=== PATIENT | male | born 1995 | race Caucasian/White ===

== ENCOUNTER 2020-11-25 18:38 | Emergency (ER) | payer BC ==
[2020-11-25] MEDS ORDERED: EPINEPHrine 1 MG/10 ML SYR IV ONE (18:39)
[2020-11-25] MEDS ORDERED: ETOMIDATE 20 MG/10 ML VIAL IV ONE (18:39)
[2020-11-25] MEDS ORDERED: SODIUM CHL 0.9% 1000 ML BAG IV ONE (18:39)
[2020-11-25] MEDS ORDERED: SUCCINYLCHOLINE 20 MG/ML (10 ML) IV ONE (18:39)
[2020-11-25] MEDS ORDERED: RSI MEDICATION KIT IV ONE (19:18)
--- NOTE | 2020-11-25 19:27 | EDPHYS ---
Physician Documentation [facility] Name: Ron Herrera Age: 24 yrs Sex: Male : 1995 Arrival Date: 11/25/2020 Time: 18:39 Bed 3 Private MD: ED Physician Bandar Mccollum HPI: 11/25 19:15 This 24 yrs old Male presents to ER via Unassigned with complaints of horacio Possible Overdose. 19:15 The patient presents to the emergency department after a known overdose, that was horacio intentional, a result of recreational substance abuse. Context: Method: the patient has a confirmed or suspected ingestion, percocet. Associated signs and symptoms: Pertinent positives: apnea. Severity of symptoms: At their worst the symptoms were incapacitating in the emergency department the symptoms. It is unknown whether or not the patient has had similar symptoms in the past. Historical: - Allergies: 18:39 No Known Allergies; aa5 - Home Meds: 19:58 Keppra Oral [Active]; phentermine oral oral [Active]; Xanax Oral [Active]; montelukast iw 10 mg oral tab 1 tab once daily [Active]; - PMHx: 19:58 Seizures; iw - Immunization history:: Adult Immunizations unknown. - Social history:: Smoking status: unknown. - Family history:: not pertinent. ROS: 19:15 Constitutional: Negative for fever, chills, and weight loss, Eyes: Negative for injury, horacio pain, redness, and discharge, ENT: Negative for injury, pain, and discharge, Neck: Negative for injury, pain, and swelling, Cardiovascular: Negative for chest pain, palpitations, and edema, Abdomen/GI: Negative for abdominal pain, nausea, vomiting, diarrhea, and constipation, Back: Negative for injury and pain, : Negative for injury, bleeding, discharge, and swelling, MS/Extremity: Negative for injury and deformity, Skin: Negative for injury, rash, and discoloration, Psych: Negative for depression, anxiety, suicide ideation, homicidal ideation, and hallucinations, Allergy/Immunology: Negative for hives, rash, and allergies, Endocrine: Negative for neck swelling, polydipsia, polyuria, polyphagia, and marked weight changes, Hematologic/Lymphatic: Negative for swollen nodes, abnormal bleeding, and unusual bruising. 19:15 Respiratory: Positive for intubated, gurdeep tube. Exam: 19:15 Head/Face: Normocephalic, atraumatic. Eyes: Pupils equal round and reactive to light, horacio extra-ocular motions intact. Lids and lashes normal. Conjunctiva and sclera are non-icteric and not injected. Cornea within normal limits. Periorbital areas with no swelling, redness, or edema. ENT: Nares patent. No nasal discharge, no septal abnormalities noted. Tympanic membranes are normal and external auditory canals are clear. Oropharynx with no redness, swelling, or masses, exudates, or evidence of obstruction, uvula midline. Mucous membranes moist. Neck: Trachea midline, no thyromegaly or masses palpated, and no cervical lymphadenopathy. Supple, full range of motion without nuchal rigidity, or vertebral point tenderness. No Meningismus. Chest/axilla: Normal chest wall appearance and motion. Nontender with no deformity. No lesions are appreciated. Back: No spinal tenderness. No costovertebral tenderness. Full range of motion. Male : Normal genitalia with no discharge or lesions. Skin: Warm, dry with normal turgor. Normal color with no rashes, no lesions, and no evidence of cellulitis. MS/ Extremity: Pulses equal, no cyanosis. Neurovascular intact. Full, normal range of motion. 19:15 Cardiovascular: Rate: tachycardic, actual rate is 135 bpm, Rhythm: regular, Pulses: Pulses are 4+ in bilateral radial, brachial, femoral, popliteal, posterior tibial and and dorsalis pedis arteries.. Heart sounds: normal, normal S1and S2, no S3 or S4, no murmur, no rub, no gallop, Edema: is not appreciated, JVD: is not appreciated. 19:15 ECG was reviewed by the Attending Physician. Vital Signs: 18:39 BP 149 / 106; Pulse 136; Resp 18; Pulse Ox 98% ; aa5 18:45 BP 144 / 128; Pulse 137; Resp 20 A; Pulse Ox 99% ; aa5 19:00 BP 167 / 112; Pulse 143; Resp 18 A; Pulse Ox 100% ; aa5 19:15 BP 187 / 160; Pulse 141; Resp 18 A; Temp 96.2(C); Pulse Ox 99% on ETT ambu; aa5 20:05 Weight 142.88 kg; ea 20:06 BP 124 / 83; Pulse 93; Resp 18; Temp 96.6; ea 21:41 BP 117 / 88; Pulse 77; Resp 20; Temp 97.1; Pulse Ox 99% on ETT vent; ea 22:38 BP 120 / 80; Pulse 80; Resp 20; Temp 98.1; Pulse Ox 100% ; ea 23:16 BP 115 / 81; Pulse 77; Resp 20; Temp 98.6; Pulse Ox 100% ; ea 18:39 O2 via Ambu bag to Gurdeep tube aa5 18:45 O2 via Ambu bag to Gurdeep Tube aa5 19:00 O2 via Ambu bag to Gurdeep Tube aa5 Procedures: 19:20 Intubation: Ventilated with 100% NRB prior to procedure. O2 saturation prior to horacio procedure was 100 %. Intubated orally using glide scope with 7.5 mm ETT. was successful on first attempt. Ventilated with Ambu bag. Tube secured with ETT calvo measured 23 cm at lip. Patient tolerated well. Central Line: the site was prepped with Betadine, in sterile fashion, a triple lumen catheter was inserted, in the right in 2 attempts. placement was verified, by blood return, the site was dressed with using sterile technique, the patient tolerated the procedure, well. MDM: 19:10 Patient medically screened. [facility] 19:20 Differential diagnosis: Ingestion/exposure to percoet. Data reviewed: vital signs, [facility] nurses notes, EMS record, old medical records, lab test result(s), EKG, radiologic studies, CT scan, plain films. Data interpreted: electronic device monitor: rate is 145 beats/min, rhythm is regular, Pulse oximetry: on ventilator is 100 %. Test interpretation: by ED physician or midlevel provider: ECG, plain radiologic studies. Counseling: I had a detailed discussion with the patient and/or guardian regarding: the historical points, exam findings, and any diagnostic results supporting the discharge/admit diagnosis, the presence of at least one elevated blood pressure reading (>120/80) during this emergency department visit, lab results, radiology results, the need for further work-up and treatment in the hospital. 11/25 18:56 Order name: Glucose, Ancillary Testing; Complete Time: 19:47 EDMS 11/25 18:56 Order name: Acetaminophen aa5 11/25 18:56 Order name: Basic Metabolic Panel [facility] 11/25 18:56 Order name: CBC with Diff [facility] 11/25 18:56 Order name: ETOH Level [facility] 11/25 18:56 Order name: Hepatic Function [facility] 11/25 18:56 Order name: PT-INR [facility] 11/25 18:56 Order name: Ptt, Activated [facility] 11/25 18:56 Order name: Salicylate [facility] 11/25 18:56 Order name: Urine Drug Screen [facility] 11/25 18:57 Order name: Amylase, Serum [facility] 11/25 18:57 Order name: Blood Culture Adult (2) [facility] 11/25 18:57 Order name: Ckmb [facility] 11/25 18:57 Order name: CPK [facility] 11/25 18:57 Order name: Lactate [facility] 11/25 18:57 Order name: Lipase [facility] 11/25 18:57 Order name: Procalcitonin [facility] 11/25 18:57 Order name: Troponin (emerg Dept Use Only) [facility] 11/25 18:57 Order name: Urine Microscopic Only [facility] 11/25 19:13 Order name: Magnesium [facility] 11/25 19:13 Order name: NT PRO-BNP [facility] 11/25 19:13 Order name: ABG [facility] 11/25 19:13 Order name: COVID-19 : Document "Date of Symptom Onset" if Symptomatic. [facility] 11/25 19:25 Order name: Urine Dipstick--Ancillary (enter results) [facility] 11/25 19:33 Order name: Salicylates Level; Complete Time: 19:47 EDMS 11/25 19:33 Order name: Alcohol Serum/Plasma; Complete Time: 19:47 EDMS 11/25 19:33 Order name: Urine Dipstick-Ancillary; Complete Time: 19:47 EDMS 11/25 19:36 Order name: Urine Drug Screen; Complete Time: 19:47 EDMS 11/25 19:44 Order name: Basic Metabolic Panel; Complete Time: 20:11 EDMS 11/25 19:44 Order name: Liver (Hepatic) Function; Complete Time: 20:11 EDMS 11/25 18:57 Order name: Chest Single View XRAY aa 11/25 19:13 Order name: CT Head Brain wo Cont horacio 11/25 19:27 Order name: Chest Single View XRAY ca1 11/25 19:32 Order name: RAD; Complete Time: 19:47 EDMS 11/25 19:44 Order name: Creatine Phosphokinase; Complete Time: 20:11 EDMS 11/25 19:44 Order name: CKMB Creatine Kinase MB; Complete Time: 20:11 EDMS 11/25 19:44 Order name: Troponin (Emerg Dept Use Only); Complete Time: 20:11 EDMS 11/25 19:44 Order name: NT PRO-BNP; Complete Time: 20:11 EDMS 11/25 19:44 Order name: Amylase; Complete Time: 20:11 EDMS 11/25 19:44 Order name: Lipase; Complete Time: 20:11 EDMS 11/25 19:44 Order name: Lactate; Complete Time: 19:47 EDMS 11/25 19:49 Order name: CT; Complete Time: 19:49 EDMS 11/25 19:50 Order name: Magnesium; Complete Time: 20:11 EDMS 11/25 19:51 Order name: Dilantin horacio 11/25 19:51 Order name: Depakote [facility] 11/25 19:51 Order name: Carbamazepine (tegretol) [facility] 11/25 19:52 Order name: Protime (+INR); Complete Time: 20:11 EDMS 11/25 19:52 Order name: PTT, Activated Partial Thromb; Complete Time: 20:11 EDMS 11/25 19:52 Order name: Acetaminophen Level; Complete Time: 20:11 EDMS 11/25 20:09 Order name: Procalcitonin; Complete Time: 20:11 EDMS 11/25 20:16 Order name: RAD; Complete Time: 21:10 EDMS 11/25 20:38 Order name: CBC with Automated Diff; Complete Time: 21:54 EDMS 11/25 20:58 Order name: Carbamazepine (Tegretol) Level; Complete Time: 21:10 EDMS 11/25 20:58 Order name: Phenytoin (Dilantin) Level; Complete Time: 21:10 EDMS 11/25 20:58 Order name: Valproic Acid (Depakene) Level; Complete Time: 21:10 EDMS 11/25 21:18 Order name: CORONAVIRUS EDMS 11/25 21:24 Order name: CBC Smear Scan; Complete Time: 21:54 EDMS 11/25 21:29 Order name: ABG Arterial Blood Gas; Complete Time: 21:54 EDMS 11/25 22:08 Order name: SARS-COV-2 RT PCR EDNV 11/25 18:56 Order name: EKG; Complete Time: 18:57 [facility] 11/25 18:56 Order name: EKG - Nurse/Tech; Complete Time: 19:35 aa5 11/25 18:56 Order name: Labs collected and sent; Complete Time: 19:35 aa5 11/25 18:56 Order name: Urine Dipstick-Ancillary (obtain specimen); Complete Time: 19:35 aa 11/25 18:57 Order name: Accucheck; Complete Time: 19:35 aa5 11/25 18:57 Order name: Cardiac monitoring; Complete Time: 19:35 aa5 11/25 18:57 Order name: IV Saline Lock - Large Bore; Complete Time: 19:35 aa 11/25 18:57 Order name: O2 Per Protocol; Complete Time: 19:35 [facility] 11/25 18:57 Order name: O2 Sat Monitoring; Complete Time: 19:35 aa 11/25 19:13 Order name: Central Line Kit; Complete Time: 19:34 horacio 11/25 19:13 Order name: Lindquist; Complete Time: 19:34 horacio 11/25 19:34 Order name: Labs - recollect needed: CBC em 11/25 19:46 Order name: Restrain Patient: VO received at 1915; Complete Time: 19:46 aa EC:15 Rate is 142 beats/min. Rhythm is regular. QRS Tyner is Normal. WV interval is normal. horacio QRS interval is normal. QT interval is normal. No Q waves. T waves are Normal. No ST changes noted. Clinical impression: Sinus tachycardia. Interpreted by me. Reviewed by me. Administered Medications: 19:00 Drug: NS 0.9% 1000 ml Route: IV; Rate: 1 bolus; Site: left forearm; aa5 21:57 Follow up: Response: No adverse reaction; IV Status: Completed infusion; IV Intake: ea 1000ml 19:15 Drug: Versed 3 mg Route: IVP; Site: right femoral; aa5 21:58 Follow up: Response: No adverse reaction ea 19:15 Drug: Versed 3 mg Route: IVP; Site: right femoral; aa5 21:58 Follow up: Response: No adverse reaction ea 19:20 Drug: Propofol 5 mcg/kg/min Route: IV; Rate: calculated rate; Site: right femoral; ea 21:57 Follow up: IV Status: Infusion continued upon transfer ea 20:30 Drug: Zosyn 3.375 grams Route: IVPB; Infused Over: 60 mins; Site: right femoral; ea 21:57 Follow up: Response: No adverse reaction; IV Status: Completed infusion ea 20:30 Drug: ProTONIX 40 mg Route: IVP; Site: right femoral; ea 21:58 Follow up: Response: No adverse reaction ea 21:59 Not Given (Physician Discretion): Rocephin 1 grams IV at calculated rate once; Given pm1 slow IV push per pharmacy instructions 21:59 Not Given (Physician Discretion): Clindamycin 900 mg IVPB once over 30 mins; (mix in 50 pm1 mL) 22:50 Drug: Cefepime 2 grams Route: IVPB; Rate: 200 ml/hr; Infused Over: 30 mins; Site: right ea femoral; 23:13 Follow up: IV Status: Completed infusion ea 23:11 Drug: vancoMYCIN 1 grams Route: IVPB; Infused Over: 2 hrs; Site: right femoral; ea 23:13 Follow up: Response: No adverse reaction; IV Status: Infusion continued upon transfer ea Disposition: 11/25/20 19:50 Transfer ordered to [facility]. Diagnosis are Respiratory failure, unspecified, Obesity, unspecified, Poisoning by unspecified drugs, medicaments and biological substances, intentional self-harm, Pneumonia, unspecified organism - ASPIRATION. - Reason for transfer: Higher level of care. - Accepting physician is DR MCGILL. - Condition is Fair. - Problem is new. - Symptoms have improved. Signatures: Dispatcher [employer] EDNV Bandar Mccollum MD MD cha Munoz, Edgar, RN Sheila Majano RN RN iw Calderon, Audri, RN RN aa5 Tad Crespo, HALL MONITOR-C HALL MONITOR-Cla1 Bobby Whitlock, BRAKE MECHANIC BRAKE MECHANIC pm1 Magalie Mcguire RN RN ea Corrections: (The following items were deleted from the chart) 19:31 19:27 Hospitalization Ordered by Carmelo Galvin DO for Inpatient Admission. Preliminary horacio diagnosis is Respiratory arrest - ROSC/RETURN OF SPONTANEOUS CIRCULATION. Bed requested for Intensive Care Unit. Status is Inpatient Admission. Condition is Fair. Problem is new. Symptoms have improved. horacio 19:35 18:56 IV Saline Lock ordered. aa5 aa5 19:46 19:31 11/25/2020 19:27 Hospitalization Ordered by Carmelo Galvin DO for Inpatient [facility] Admission. Preliminary diagnosis is Respiratory arrest - ROSC/RETURN OF SPONTANEOUS CIRCULATION; Poisoning by unspecified drugs, medicaments and biological substances, intentional self-harm; Obesity, unspecified; Pneumonia, unspecified organism - ASPIRATION. Bed requested for Intensive Care Unit. Status is Inpatient Admission. Condition is Fair. Problem is new. Symptoms have improved. [facility] 19:58 18:39 PMHx: None; aa5 iw 23:17 19:50 11/25/2020 19:50 Transfer ordered to [facility]. Diagnosis is Respiratory ea failure, unspecified; Obesity, unspecified; Poisoning by unspecified drugs, medicaments and biological substances, intentional self-harm; Pneumonia, unspecified organism - ASPIRATION. Reason for transfer: Higher level of care. Accepting physician is DR MCGILL. Condition is Fair. Problem is new. Symptoms have improved. horacio
--- NOTE | 2020-11-25 19:31 | RAD REPORT ---
EXAM DESCRIPTION: RAD - Chest Single View - 11/25/2020 7:19 pm CLINICAL HISTORY: md charlton Chest pain. FINDINGS: Portable technique limits examination quality. Tip of the endotracheal tube is above the deidre at the level of the clavicular heads. Mild atelectas is is present both lung bases. Heart size is upper limit normal.
[2020-11-25] MEDS ORDERED: propofoL 1,000 MG/100 ML VIAL IV ONE ×2 (19:32→20:58)
[2020-11-25] MEDS ORDERED: MIDAZOLAM HCL 2 MG/2 ML INJ ONE (19:32)
[2020-11-25 19:33] LABS: Urine Blood TRACE (NEG); Urine Glucose NEGATIVE (NEG); Urine Protein 3+ (NEG); Urine Specific Gravity >1.030 (1.005-1.030)
[2020-11-25 19:35] LABS: Barbiturates NEGATIVE (NEGATIVE); Benzodiazepines POSITIVE (NEGATIVE); Cocaine POSITIVE (NEGATIVE); METHAMPHETAM NEGATIVE (NEGATIVE); Methadone NEGATIVE (NEGATIVE); Opiates POSITIVE (NEGATIVE); Phencyclidine NEGATIVE (NEGATIVE); THC Cannibis POSITIVE (NEGATIVE)
[2020-11-25 19:43] LABS: ALT/SGPT 193 U/L (12-78); Alkaline Phosphatase 73 U/L (45-117); BUN Blood Urea Nitrogen 18 mg/dL (7-18); Bicarbonate 28 mmol/L (21-32); Bilirubin Direct < 0.1 mg/dL (0-0.2); Bilirubin Total 0.3 mg/dL (0.2-1.0); Glucose Level 243 mg/dL (74-106); Protein, Total 7.4 g/dL (6.4-8.2); Sodium Level 139 mmol/L (136-145)
[2020-11-25 19:44] LABS: Albumin 3.8 g/dL (3.4-5.0); Amylase 64 U/L (25-115); CKMB Creatine Kinase MB 1.3 ng/mL (0.3-3.6); Creatine Phosphokinase 169 U/L (39-308); Lipase 161 U/L (73-393); NT PRO-BNP 6 pg/mL (<125); Troponin (Emerg Dept Use Only) 0.02 ng/mL (0.0-0.045)
--- NOTE | 2020-11-25 19:48 | RAD REPORT ---
EXAM DESCRIPTION: CT - Head Brain Wo Cont - 11/25/2020 7:40 pm CLINICAL HISTORY: MENTAL STATUS CHANGE Headache, drowsiness COMPARISON: Head Brain Wo Cont dated 01/23/2016; HEAD BRAIN W O CONTRAST dated 12/21/2014 TECHNIQUE: All CT scans are performed using dose optimization technique as appropriate and may inclu de automated exposure control or mA/KV adjustment according to patient size. FINDINGS: No intracranial hemorrhage, hydrocephalus or extra-axial fluid collection.No areas of brai n edema or evidence of midline shift. The paranasal sinuses and mastoids are clear. The calvarium is intact. Endotracheal tube and nasogast wu tube noted. IMPRESSION: No acute intracranial abnormality.
[2020-11-25 19:50] LABS: Magnesium 1.9 mg/dL (1.8-2.4); Potassium 4.3 mmol/L (3.5-5.1); Protime INR 0.97
--- NOTE | 2020-11-25 19:50 | ER ---
Nurse's Notes [facility] Name: Ron Herrera Age: 24 yrs Sex: Male : 1995 Arrival Date: 11/25/2020 Time: 18:39 Bed 3 Private MD: Diagnosis: Respiratory failure, unspecified;Obesity, unspecified;Poisoning by unspecified drugs, medicaments and biological substances, intentional self-harm;Pneumonia, unspecified organism-ASPIRATION Presentation: 11/25 18:39 Chief complaint: EMS states: Pt's mother called 911 for possible opioid overdose, PD aa5 was first to arrive to scene and witnessed cardiac arrest, CPR was initiated by PD, ROSC was obtained after 2 rounds of CPR. Pt was intubated using Gurdeep tube, given Narcan, Ketamine, Versed, and Rocuronium by EMS. IO to R leg by EMS. Coronavirus screen: At this time, unable to obtain information related to travel outside the [place] Ebola Screen: Unable to complete the Ebola screening because:. Initial Sepsis Screen: Does the patient meet any 2 criteria? Altered Mental Status. HR > 90 bpm. Does the patient have a suspected source of infection? No. Patient's initial sepsis screen is negative. Risk Assessment: Do you want to hurt yourself or someone else? Unable to obtain. Onset of symptoms was November 25, 2020. 18:39 Method Of Arrival: EMS: [facility] aa5 18:39 Acuity: MIGUEL ANGEL 1 aa5 Historical: - Allergies: 18:39 No Known Allergies; aa5 - Home Meds: 19:58 Keppra Oral [Active]; phentermine oral oral [Active]; Xanax Oral [Active]; montelukast iw 10 mg oral tab 1 tab once daily [Active]; - PMHx: 19:58 Seizures; iw - Immunization history:: Adult Immunizations unknown. - Social history:: Smoking status: unknown. - Family history:: not pertinent. Screenin:00 Abuse screen: unable to obtain. Nutritional screening: unable to complete. Tuberculosis aa5 screening: unable to complete. 22:38 Fall Risk None identified. ea Assessment: 18:39 General: Behavior is unresponsive. Pain: Unable to use pain scale. Patient is aa5 intubated. Neuro: Level of Consciousness is intubated and sedated with no gag reflex present . Cardiovascular: Heart tones S1 S2 present Pulses are 3+ in left radial artery and left brachial artery Rhythm is sinus tachycardia. Respiratory: Airway via oral intubation Respiratory effort is assisted using Ambu bag to Gurdeep tube Respiratory pattern is regular, symmetrical, Breath sounds are clear bilaterally. GI: Abdomen is round non-distended, Abd is soft X 4 quads. Derm: Skin is dry, Skin is normal, Skin temperature is cool. 19:14 Reassessment: Pt now opening his eyes and mildly bucking the vent, MD was notified. . aa5 19:15 Reassessment: Soft wrist restrains applied per VO. Capillary refill <5 seconds prior aa5 and after restraint placement. . 19:17 Reassessment: Report given to JEAN MARIE Mejias. aa5 20:00 Reassessment: Pt resting with eyes closed, ETT in place, respirations assisted, amauri ea lung sounds present. NG tube in place to low intermittent suction, Lindquist catheter in place to BSD. IV sites intact, patent with fluids infusing, no erythema or edema noted. Awaiting on covid results. General:. 22:46 Reassessment: Report called to Brenda AJ at [facility] ICU. ea 23:14 Reassessment: [facility] at facility for transport. Report given to EMS. Pt ea resting with eyes closed, ETT in place, respirations assisted, amauri lung sounds present. NG tube in place to low intermittent suction. Lindquist catheter in place to BSD. IV sites intact, patent with fluids infusing. No erythema or edema noted. Pt left ED via stretcher per EMS. Vital Signs: 18:39 BP 149 / 106; Pulse 136; Resp 18; Pulse Ox 98% ; aa5 18:45 BP 144 / 128; Pulse 137; Resp 20 A; Pulse Ox 99% ; aa5 19:00 BP 167 / 112; Pulse 143; Resp 18 A; Pulse Ox 100% ; aa5 19:15 BP 187 / 160; Pulse 141; Resp 18 A; Temp 96.2(C); Pulse Ox 99% on ETT ambu; aa5 20:05 Weight 142.88 kg; ea 20:06 BP 124 / 83; Pulse 93; Resp 18; Temp 96.6; ea 21:41 BP 117 / 88; Pulse 77; Resp 20; Temp 97.1; Pulse Ox 99% on ETT vent; ea 22:38 BP 120 / 80; Pulse 80; Resp 20; Temp 98.1; Pulse Ox 100% ; ea 23:16 BP 115 / 81; Pulse 77; Resp 20; Temp 98.6; Pulse Ox 100% ; ea 18:39 O2 via Ambu bag to Gurdeep tube aa5 18:45 O2 via Ambu bag to Gurdeep Tube aa5 19:00 O2 via Ambu bag to Gurdeep Tube aa5 ED Course: 18:39 Patient arrived in ED. am2 18:39 Patient has correct armband on for positive identification. Bed in low position. Side aa5 rails up X2. panel monitor on. Pulse ox on. NIBP on. 18:56 Initial lab(s) drawn, by me, sent to lab. Inserted saline lock: 20 gauge in left aa5 forearm, using aseptic technique. Blood collected. 18:56 First set of blood cultures drawn by me. aa5 19:00 Assisted provider with central line placement. Set up central line tray. Triple lumen aa5 line placed in right femoral. Line placed by Bandar Mccollum MD Placement verified by blood return, Was procedure site sterilized? Yes, with Betadine . Was the site allowed to dry? Yes. During the procedure, did the Practitioner(s) maintain a sterile field? Yes. 19:00 Patient placed in an exam room, on a stretcher, on front desk monitor, on pulse oximetry. ea 19:04 Assisted provider with intubation using 7.5 mm ETT via oral route. ET tube secured at aa5 23cm at the teeth. Set up intubation tray. Intubated by Tad CHAPPELL Placement verified by CO2 detector w/ + color change, auscultating bilateral breath sounds. 19:04 Gurdeep tube removed and OG by EMS removed prior to re-intubation. aa5 19:07 Second set of blood cultures drawn by physician. aa5 19:10 Bandar Mccollum MD is Attending Physician. [facility] 19:10 Lindquist cath inserted, using sterile technique, 16 Fr., by nj, balloon inflated, to aa5 gravity drainage, Patient tolerated well. 19:10 NGT: inserted 14 Fr. via left nare. verified placement of air over stomach, NG tube aa5 placed by Noam Segovia RN. 19:24 Carmelo Galvin DO is Hospitalizing Provider. [facility] 19:30 Initiated transfer at [facility] with Joyce Alexander. Stated she would check bed availability tt3 and call back. 19:33 Jenni Lopez, RN is Primary Nurse. aa5 19:41 Triage completed. aa5 19:42 Joyce Alexander called back with their physician to speak with Dr. Mccollum regarding the tt3 transfer request. 20:00 Joyce Alexander called back and stated that they did receive pt face sheet and that they tt3 had a bed available - covid pending. Will call and update Joyce Alexander when covid results are in. 20:[address] Mccollum, [facility], [facility], and [facility] were all tt3 called and asked about ICU beds per family request as they do not prefer [facility]. All facilities stated they were at ICU capacity - 1 facility stating there was a "few days wait list" for ICU beds. Information was passed on to family and they are accepting of [facility]. 20:18 Patient transferred, IV remains in place. ea 22:14 Jordyn Alexander gave admin approval. Stated that the pt is going to [facility]. The accepting tt3 physician [address] Dr. Shipley. Nurse to call report to . Administered Medications: 19:00 Drug: NS 0.9% 1000 ml Route: IV; Rate: 1 bolus; Site: left forearm; aa5 21:57 Follow up: Response: No adverse reaction; IV Status: Completed infusion; IV Intake: ea 1000ml 19:15 Drug: Versed 3 mg Route: IVP; Site: right femoral; aa5 21:58 Follow up: Response: No adverse reaction ea 19:15 Drug: Versed 3 mg Route: IVP; Site: right femoral; aa5 21:58 Follow up: Response: No adverse reaction ea 19:20 Drug: Propofol 5 mcg/kg/min Route: IV; Rate: calculated rate; Site: right femoral; ea 21:57 Follow up: IV Status: Infusion continued upon transfer ea 20:30 Drug: Zosyn 3.375 grams Route: IVPB; Infused Over: 60 mins; Site: right femoral; ea 21:57 Follow up: Response: No adverse reaction; IV Status: Completed infusion ea 20:30 Drug: ProTONIX 40 mg Route: IVP; Site: right femoral; ea 21:58 Follow up: Response: No adverse reaction ea 21:59 Not Given (Physician Discretion): Rocephin 1 grams IV at calculated rate once; Given pm1 slow IV push per pharmacy instructions 21:59 Not Given (Physician Discretion): Clindamycin 900 mg IVPB once over 30 mins; (mix in 50 pm1 mL) 22:50 Drug: Cefepime 2 grams Route: IVPB; Rate: 200 ml/hr; Infused Over: 30 mins; Site: right ea femoral; 23:13 Follow up: IV Status: Completed infusion ea 23:11 Drug: vancoMYCIN 1 grams Route: IVPB; Infused Over: 2 hrs; Site: right femoral; ea 23:13 Follow up: Response: No adverse reaction; IV Status: Infusion continued upon transfer ea Intake: 21:57 IV: 1000ml; Total: 1000ml. ea Outcome: 19:27 Decision to Hospitalize by Provider. horacio 19:50 ER care complete, transfer ordered by MD. horacio 20:18 Instructed on the need for transfer. ea 23:13 Transferred by ground EMS to [facility], Transfer form ea completed. 23:13 Condition: stable 23:17 Patient left the ED. ea Signatures: Bandar Mccollum MD MD cha Williams, Irene, RN RN iw Calderon, Audri, RN RN aa5 Brenda Simpson am2 Magalie Mcguire RN RN ea Trim, Tyler tt3 Bobby Whitlock [employer] pm1 Corrections: (The following items were deleted from the chart) 19:41 18:39 Chief complaint: EMS states: Pt's mother called 911 for possible opioid overdose, aa5 PD was first to arrive to scene and witnessed cardiac arrest, CPR was initiated by PD, ROSC was obtained after 2 rounds of CPR. Pt was intubated using [place] tube, given Narcan, Ketamine, Versed, and Rocuronium by EMS. aa5 19:42 18:39 Chief complaint: EMS states: Pt's mother called 911 for possible opioid overdose, aa5 PD was first to arrive to scene and witnessed cardiac arrest, CPR was initiated by PD, ROSC was obtained after 2 rounds of CPR. Pt was intubated using [place]dale tube, given Narcan, Ketamine, Versed, and Rocuronium by EMS. IO to R leg by EMS. aa5 19:56 18:39 Respiratory: Airway via oral intubation Respiratory effort is assisted using Ambu aa5 bag to Gurdeep tube Respiratory pattern is regular, symmetrical, aa5 19:58 18:39 PMHx: None; aa5 iw
[2020-11-25 19:51] LABS: AST/SGOT 166 U/L (15-37)
--- NOTE | 2020-11-25 20:15 | RAD REPORT ---
EXAM DESCRIPTION: RAD - Chest Single View - 11/25/2020 7:52 pm CLINICAL HISTORY: POST ETT Chest pain. COMPARISON: Chest Single View dated 11/25/2020; CHEST PA AND LAT 2 VIEW dated 10/13/2009 FINDINGS: Portable technique limits examination quality. Tip of the endotracheal tube is at the level of the aortic arch. Bilateral pulmonary opacities are pr esent likely representing pulmonary edema, greater on the right. Enteric tube descends into the stoma ch.
[2020-11-25 20:30] LABS: Absolute Lymphocytes (CBC) 1.1 K/uL (0.7-4.9); Basophils % 0.2 % (0-1.3); Hematocrit 42.4 % (39.6-49.0); Lymphocytes % 4.9 % (15.3-44.8); MPV 7.8 fL (7.6-11.3); RBC Red Blood Cell Count 4.85 M/uL (4.33-5.43)
[2020-11-25] MEDS ORDERED: PANTOPRAZOLE 40 MG INJ ONE (20:37)
[2020-11-25] MEDS ORDERED: PIPER/TAZO/NS 3.375gm 3.375 GM/100 ML BAG ONE (20:37)
[2020-11-25 20:55] LABS: Arterial Blood Carboxyhemoglob 1.1 % (0-1.5); Blood Gas Oxyhemoglobin 97.1 % (94-97)
[2020-11-25 20:58] LABS: Phenytoin (Dilantin) Level 0.7 ug/mL (10.0-20.0); Valproic Acid (Depakene) Level < 3.0 ug/mL (50-100)
[2020-11-25] MEDS ORDERED: NA CHLORIDE 0.9% 1,000 ML ONE (20:58)
[2020-11-25 21:23] LABS: Blood Morphology Comment NOT SEEN (NOT SEEN); Platelet Estimate ADEQ; White Blood Cell Scan OK (OK)
[2020-11-25] MEDS ORDERED: CEFEPIME/SWI 1gm 20 ML ONE (22:26)
[2020-11-25] MEDS ORDERED: NA CHLORIDE 0.9% 250 ML ONE (22:27)
[2020-11-25] MEDS ORDERED: VANCOMYCIN 1 GM/VIAL ONE (22:27)
[2020-11-26 01:04] VITALS: O2SAT 100
[2020-11-26 01:05] VITALS: BP 115/81; TEMP 98.6
== END 2020-11-25 23:17 | disposition short-term general hospital (02) ==
LOC: ER 18:38
PROC: 0BH17EZ Insertion of Endotracheal Airway into Trachea, Via Natural or Artificial Opening (ICD-10-PCS; principal; 2020-11-25)
PROC: 5A1935Z Respiratory Ventilation, Less than 24 Consecutive Hours (ICD-10-PCS; 2020-11-25)
PROC: 06HM33Z Insertion of Infusion Device into Right Femoral Vein, Percutaneous Approach (ICD-10-PCS; 2020-11-25)
DX: T40.2X2A Poisoning by other opioids, intentional self-harm, initial encounter (principal); J69.0 Pneumonitis due to inhalation of food and vomit; E66.9 Obesity, unspecified; Z20.822 Contact with and (suspected) exposure to COVID-19; G40.909 Epilepsy, unspecified, not intractable, without status epilepticus
CPT/HCPCS: 96365; 96367; 93005; 87040 ×2; 85025; 80048; 36415; 80320; 82150; 83735; 82550; 80156; 80329 ×2; 85610; 82947; 80076; 80164; 80307 ×8; 83605 ×2; 85730; 80185; 81003; 84484; 82553; 83690; 84145; 83880; 70450; 71045 ×2; 94002 ×2; 82805; 31500; 51702; 96375; 99291; 36556; U0003; J0330; J2704 ×2; C9113; J2250; J3370; J2543; J0171; J0692; J7050; J7030 ×2